=== PATIENT | female | born 2005 | race Caucasian/White ===

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

== ENCOUNTER 2025-06-15 19:06 | Outpatient (CLI) | payer OTHER, SELFPAY ==
[2025-06-18 05:12] LABS: HSV 1 Subtype by PCR Not Detected; HSV 2 Subtype by PCR Not Detected; Herpes Simplex Subtype Source Vesicle
== END 2025-06-15 19:07 | disposition home or self-care (01) ==
LOC: NFLDUCREF 19:07
PROVIDERS: Visit Provider Physician Assistant Surgical
DX: N89.8 Other specified noninflammatory disorders of vagina (principal)
CPT/HCPCS: 87529